=== PATIENT | female | born 1980 | race Caucasian/White ===

== ENCOUNTER 2020-08-26 00:15 | Emergency (ER) | payer OTHER ==
[~2020-08-26] VITALS: Ht 170.2 cm; Wt 101.2 kg
[2020-08-26 00:39] VITALS: BP 85/40
[2020-08-26 03:15] VITALS: BP 118/67
== END 2020-08-26 03:15 | disposition home or self-care (01) ==
LOC: MED 00:15
DX: S93.601A Unspecified sprain of right foot, initial encounter (principal); D64.9 Anemia, unspecified; F32.9 Major depressive disorder, single episode, unspecified; Z79.899 Other long term (current) drug therapy; Z88.6 Allergy status to analgesic agent; W22.8XXA Striking against or struck by other objects, initial encounter; Y93.89 Activity, other specified; Y92.89 Other specified places as the place of occurrence of the external cause; Y99.8 Other external cause status
CPT/HCPCS: 73630; 99283